=== PATIENT | female | born 1950 | race Caucasian/White ===

== ENCOUNTER 2024-04-21 15:03 | Inpatient (IN) | payer OTHER, MEDICAID ==
[~2024-04-21] VITALS: Ht 160 cm; Wt 59.9 kg
[2024-04-21 15:10] VITALS: O2SAT 93
[2024-04-21] MEDS: PANTOPRAZOLE SODIUM 40 MG/VIAL IV STA (16:19)
[2024-04-21] MEDS: SODIUM CHLORIDE 0.9% 500 ML IV ONE (16:19)
[2024-04-21] MEDS: CEFTRIAXONE 1GM/50ML 50 ML IV ONE (16:25)
[2024-04-21 16:35] LABS: BASOPHILS % 0.8 % (0.0-2.0); DIFFERENTIAL COMMENT 0; EOSINOPHILS % 0.1 % (0.0-5.0); HEMATOCRIT. 25.4 % (36.0-48.0); HEMOGLOBIN. 7.8 g/dL (12.0-16.0); LYMPHOCYTES % 12.5 % (20.0-50.0); MEAN CORPUSCULAR HEMOGLOBIN 33.1 pg (28.0-32.0); MEAN CORPUSCULAR HGB CONC 30.8 g/dL (31.0-37.0); MEAN CORPUSCULAR VOLUME 107.2 fL (81.0-99.0); MEAN PLATELET VOLUME 10.9 fl (7.4-10.4); MONOCYTES % 6.7 % (2.0-8.0); NEUTROPHILS % 79.9 % (40.0-76.0); PLATELET 100 x1000/uL (130-400); RED BLOOD CELL COUNT 2.37 mill/uL (4.2-5.4); RED CELL DISTRIBUTION WIDTH 20.9 % (11.6-14.6); WHITE BLOOD COUNT 7.3 x1000/uL (4.5-11.0)
[2024-04-21 16:38] LABS: POTASSIUM 3.9 mEq/L (3.5-5.1)
[2024-04-21 16:39] LABS: CALCIUM 9.2 mg/dL (8.7-10.4)
[2024-04-21 16:44] LABS: CREATININE 1.8 mg/dL (0.6-1.0)
[2024-04-21 16:47] LABS: LACTIC ACID 2.6 mmol/L (0.4-2.0)
[2024-04-21] MEDS: OCTREOTIDE 1,000 MCG in SODIUM CHLORIDE 0.9% 100 ML IV STA (17:27)
[2024-04-21] MEDS: OCTREOTIDE ACETATE 50 MCG/ML 1ML IV STA (17:27)
[2024-04-21 20:00] LABS: INR 1.5; PARTIAL THROMBOPLASTIN TIME 43.8 sec (23.4-31.0); PROTHROMBIN TIME 16.1 sec (9.6-11.0)
[2024-04-21] MEDS: PANTOPRAZOLE 80 MG in SODIUM CHLORIDE 0.9% 100 ML IV STA (22:50)
[2024-04-21 23:00] VITALS: BP 136/85; PULSE 78; RESP 19; TEMP 36.28068; TEMP 36.3068; O2SAT 100
[2024-04-22] MEDS ORDERED: ONDANSETRON HCL 4MG/2ML INJ IV PRN (02:00)
[2024-04-22] MEDS ORDERED: ACETAMINOPHEN 325MG TABLET PO PRN (02:00)
[2024-04-22] MEDS ORDERED: CLONIDINE 0.1MG TABLET PO PRN (02:00)
[2024-04-22] MEDS ORDERED: DEXTROSE 50% WATER 50ML SYRINGE IV PRN (02:00)
[2024-04-22 03:43] LABS: HEMATOCRIT 30.4 % (36.0-48.0); HEMOGLOBIN 10.1 g/dL (12.0-16.0)
[2024-04-22] MEDS: SODIUM CHLORIDE 0.9% 3ML FLUSH IVF SCH (06:16)
[2024-04-22] MEDS: ACETAMINOPHEN 325MG TABLET PO PRN (06:25)
[2024-04-22 08:00] VITALS: BP 144/55; PULSE 74; RESP 16; TEMP 37.00296; O2SAT 97
[2024-04-22] MEDS: INSULIN LISPRO 100 UNITS/ML SUBCUT SCH (08:10)
[2024-04-22] MEDS: PANTOPRAZOLE SODIUM 40 MG/VIAL IV SCH (08:28)
[2024-04-22] MEDS: BLOOD SUGAR DIAGNOSTIC STRIP TEST SCH (08:28)
== END 2024-04-22 11:50 | disposition left against medical advice (07) | DRG 377 ==
LOC: ER 15:03 → 7WST 18:25
PROVIDERS: ADMIT Internal Medicine; ATTEND Internal Medicine
PROC: 30233N1 Transfusion of Nonautologous Red Blood Cells into Peripheral Vein, Percutaneous Approach (ICD-10-PCS; principal; 2024-04-21)
DX: K92.2 Gastrointestinal hemorrhage, unspecified (principal); N18.6 End stage renal disease; I13.2 Hypertensive heart and chronic kidney disease with heart failure and with stage 5 chronic kidney disease, or end stage renal disease; D64.9 Anemia, unspecified; E11.22 Type 2 diabetes mellitus with diabetic chronic kidney disease; I48.91 Unspecified atrial fibrillation; I50.9 Heart failure, unspecified; K74.60 Unspecified cirrhosis of liver; Z53.29 Procedure and treatment not carried out because of patient's decision for other reasons; Z86.73 Personal history of transient ischemic attack (TIA), and cerebral infarction without residual deficits; Z99.2 Dependence on renal dialysis; I25.2 Old myocardial infarction
CPT/HCPCS: 36415; 80048; 82962; 83036; 83605; 85014; 85018; 85025; 86850; 86900; 86920; 99291; J0696; J2354; J2470; J7040; J7050; P9016